=== PATIENT | female | born 1985 | race Caucasian/White ===

== ENCOUNTER 2016-10-21 12:32 | Emergency (ER) | payer BC ==
[~2016-10-21] VITALS: Ht 165.1 cm; Wt 65.8 kg
[2016-10-21 12:36] VITALS: BP 119/67
[2016-10-21] MEDS ORDERED: MIDAZOLAM HCL 2 MG/2ML VIAL ONE (13:30)
== END 2016-10-21 13:56 | disposition home or self-care (01) ==
LOC: ER 12:35
DX: S93.401A Sprain of unspecified ligament of right ankle, initial encounter (principal); J45.909 Unspecified asthma, uncomplicated; G89.29 Other chronic pain; M25.552 Pain in left hip; W18.39XA Other fall on same level, initial encounter; Y93.02 Activity, running; Y92.830 Public park as the place of occurrence of the external cause; Y99.9 Unspecified external cause status
CPT/HCPCS: 73610; 99284; A4606; J2250; Z7610